=== PATIENT | female | born 1985 | race Caucasian/White ===

== ENCOUNTER 2023-02-03 18:59 | Emergency (ER) | payer OTHER ==
[2023-02-03 19:18] VITALS: BP 131/72; O2SAT 95
--- NOTE | 2023-02-03 20:10 | ED Physician Documentation ---
History of Present Illness - Stated complaint Stated Complaint: NASAL PX/STITCH - Chief complaint Chief Complaint: Heent - History obtained from History obtained from: Patient - Additonal information Additional information: 38yF with pmh seasonal allergies, psh septorhinoplasty 10 years ago in [place] p/w R naris irritation after noticing a retained stitch in her R naris through the septum and trying to pull it tonight. patient states she feels discomfort to the R naris shooting up the nose. denies nose bleed. Review of Systems Constitutional: denies: Fever Nose: reports: Congestion, Foreign Body Throat: denies: Sore throat PD PAST MEDICAL HISTORY - Allergies Allergies/Adverse Reactions: Allergies Allergy/AdvReac Type Severity Reaction Status Date / Time No Known Drug Allergies Allergy Verified 02/03/23 19:10 PD ED PE NORMAL - Vitals Vital signs reviewed: Yes - General General: Alert and oriented X 3, No acute distress, Well developed/nourished - HEENT HEENT: Atraumatic, PERRL, EOMI, Moist mucous membranes, Pharynx benign, Other (R naris with blue suture evident to septum. minimal surrounding irritation. increased clear mucus production) Results - Vitals Vitals: Vital Signs - 24 hr 02/03/23 19:05 Temperature 37.5 C Heart Rate 83 Respiratory 18 Rate Blood Pressure 131/72 H O2 Saturation 95 Oxygen O2 Source Room air PD Medical Decision Making - ED course ED course: 38yF presents to the ED after finding a retained suture in her R naris after a surgery 10 years ago and attempting to pull on it, causing discomfort. patient is well appearing, indeed with a prolene suture in her R naris at the medial/septal aspect without any evidence of damage to surrounding tissues. advised f/u with ent. return precautions given. Departure - Departure Disposition: 01 Home, Self Care Clinical Impression: Nose irritation, Retained suture Condition: Stable Instructions: Ibuprofen tablets and capsules Follow-Up: Jason Wilson DO [Physician No Access] - Comments: You were seen in the emergency department for irritation of the right nostril and a retained stitch from your previous surgery. Please follow-up with ENT. For pain you can take ibuprofen 400 to 600 mg every 6 hours as needed. Please return to the emergency department if you have any new or worsening symptoms or other concerns.
== END 2023-02-03 20:18 | disposition home or self-care (01) ==
LOC: ED 18:59
DX: M79.5 Residual foreign body in soft tissue (principal)
CPT/HCPCS: 99281; 99283